=== PATIENT | male | born 1955 | race Caucasian/White ===

== ENCOUNTER 2017-06-01 21:33 | Emergency (ER) | payer OTHER ==
[~2017-06-01] VITALS: Ht 172.7 cm; Wt 83.2 kg
[2017-06-01 22:28] LABS: HEMATOCRIT 44.1 % (38.0-50.0); MCHC 33.3 G/DL (30.0-36.0); MEAN PLAT.VOLUME 11.3 uM^3 (9.0-12.4); PLATELET COUNT 188 K/uL (156-360); RBC DIS.WIDTH-CV 13.1 % (11.8-14.6); RBC DIS.WIDTH-SD 41.6 % (39-53); RED BLOOD COUNT 5.07 M/uL (4.00-5.50); WHITE BLOOD COUNT 20.3 K/uL (4.1-10.2)
[2017-06-01 22:48] LABS: CHLORIDE 106 mEq/L (99-109); POTASSIUM 4.2 mEq/L (3.7-5.4); SODIUM 139 mEq/L (136-147)
[2017-06-01 22:50] LABS: GLUCOSE 137 mg/dL (70-99)
[2017-06-01 22:51] LABS: ANION GAP 11 MEQ/L (2-14)
[2017-06-01 22:54] LABS: UREA NITROGEN (BUN) 15 mg/dL (9-23)
[2017-06-01 22:56] LABS: GFR ESTIMATE (CALCULATED) > 59 mL/min/
[2017-06-02 00:18] LABS: ADD MIUA? NO; BILIRUBIN NEGATIVE; BLOOD NEGATIVE; COLOR YELLOW ((YELLOW)); GLUCOSE (STRIP) NEGATIVE; KETONES 5; LEUKOCYTES NEGATIVE; NITRITE NEGATIVE; PROTEIN (STRIP) NEGATIVE; UCUL ADDED? NO; UROBILINOGEN 0.2 MG/DL (0.2-1.0)
[2017-06-02 00:44] VITALS: BP 145/78
[2017-06-02] MEDS ORDERED: TRADJENTA5 MG PO (00:48)
== END 2017-06-02 00:48 | disposition home or self-care (01) ==
LOC: EME 21:33
DX: K52.9 Noninfective gastroenteritis and colitis, unspecified (principal); E78.5 Hyperlipidemia, unspecified; I10 Essential (primary) hypertension
CPT/HCPCS: 74176; 80048; 81003; 83605; 85027; 87040; 99281; 99284; J2405; J7030

== ENCOUNTER 2017-06-06 03:23 | Emergency (ER) | payer OTHER ==
[~2017-06-06] VITALS: Ht 172.7 cm; Wt 84.6 kg
[~2017-06-06 03:23] MED LIST: TRADJENTA5 MG PO
[2017-06-06 04:03] LABS: EOSINOPHIL (%) 0.9 % (0-5); EOSINOPHIL COUNT 0.2 K/uL (0-0.3); HEMATOCRIT 46.2 % (38.0-50.0); IMMATURE GRANULOCYTE (%) 0.6 % (0.0-0.7); IMMATURE GRANULOCYTE COUNT 0.1 K/uL; INSTRUMENT ABS NEUTROPHIL CT 14.9 K/uL; LYMPHOCYTE COUNT 1.5 K/uL (1.0-2.8); MCH 28.8 PG (29.0-34.0); MCHC 32.9 G/DL (30.0-36.0); MCV 87.5 FL (86-99); MONOCYTE COUNT 0.9 K/uL (0-0.8); NEUTROPHIL COUNT 14.9 K/uL (1.8-6.4); PLATELET COUNT 205 K/uL (156-360); RBC DIS.WIDTH-CV 13.2 % (11.8-14.6); RED BLOOD COUNT 5.28 M/uL (4.00-5.50); WHITE BLOOD COUNT 17.5 K/uL (4.1-10.2)
[2017-06-06 04:18] LABS: CHLORIDE 103 mEq/L (99-109); POTASSIUM 4.1 mEq/L (3.7-5.4); SODIUM 138 mEq/L (136-147)
[2017-06-06 04:20] LABS: GLUCOSE 240 mg/dL (70-99)
[2017-06-06 04:21] LABS: ANION GAP 11 MEQ/L (2-14)
[2017-06-06 04:22] LABS: TOTAL BILIRUBIN 0.7 mg/dL (0.0-1.0)
[2017-06-06 04:23] LABS: ALKALINE PHOSPHATASE 89 IU/L (3-129)
[2017-06-06 04:24] LABS: GFR ESTIMATE (CALCULATED) > 59 mL/min/
[2017-06-06 04:25] LABS: UREA NITROGEN (BUN) 14 mg/dL (9-23)
[2017-06-06 04:27] LABS: LIPASE 49 U/L (1.0-51.0)
[2017-06-06 04:56] LABS: C DIFF TOXIN NEGATIVE (NEGATIVE)
[2017-06-06 04:59] LABS: PROBE CHECK PASS; SPECIMEN PROCESSING CONTROL PASS
[2017-06-06] MEDS ORDERED: BENTYL20 MG PO (07:11)
[2017-06-06] MEDS ORDERED: ZOFRAN4 MG PO (07:11)
[2017-06-06] MEDS ORDERED: PERCOCET 5/31 TABLET PO (09:53)
[2017-06-06] MEDS ORDERED: ZOFRAN ODT4 MG PO (09:53)
[2017-06-06 10:00] VITALS: BP 120/86
== END 2017-06-06 10:00 | disposition home or self-care (01) ==
LOC: EME → EDBD 03:23 → EME 10:00
PROVIDERS: Emergency Medicine
DX: A08.4 Viral intestinal infection, unspecified (principal); E86.0 Dehydration; E11.65 Type 2 diabetes mellitus with hyperglycemia; I10 Essential (primary) hypertension; E78.5 Hyperlipidemia, unspecified
CPT/HCPCS: 80053; 83690; 85025; 87493; 99281; 99284; J2405; J2765; J3010; J7030

== ENCOUNTER 2017-06-11 23:02 | Observation (INO) | payer OTHER ==
[~2017-06-11] VITALS: Ht 172.7 cm; Wt 84.8 kg
[~2017-06-11 23:02] MED LIST changes: +BENTYL20 MG PO; +PERCOCET 5/31 TABLET PO; +ZOFRAN ODT4 MG PO; +ZOFRAN4 MG PO
[2017-06-11 23:42] LABS: HEMATOCRIT 44.6 % (38.0-50.0); MCH 29.2 PG (29.0-34.0); MCHC 33.2 G/DL (30.0-36.0); PLATELET COUNT 222 K/uL (156-360); RBC DIS.WIDTH-CV 13.2 % (11.8-14.6); RBC DIS.WIDTH-SD 42.7 % (39-53); RED BLOOD COUNT 5.07 M/uL (4.00-5.50)
[2017-06-11 23:54] LABS: ADD MIUA? YES; BILIRUBIN NEGATIVE; BLOOD NEGATIVE; COLOR YELLOW ((YELLOW)); GLUCOSE (STRIP) NEGATIVE; KETONES NEGATIVE; LEUKOCYTES NEGATIVE; NITRITE NEGATIVE; PROTEIN (STRIP) 30; SPECIFIC GRAVITY 1.021 (1.000-1.030); UROBILINOGEN 0.2 MG/DL (0.2-1.0)
[2017-06-11 23:59] LABS: CHLORIDE 105 mEq/L (99-109); POTASSIUM 4.2 mEq/L (3.7-5.4); SODIUM 139 mEq/L (136-147)
[2017-06-12 00:01] LABS: BACTERIA RARE /HPF; EPITHELIAL CELLS RARE /HPF; MUCUS 1+ /LPF; RED BLOOD CELLS 0-5 /HPF (0-5); UCUL ADDED? NO; WHITE BLOOD CELLS 0-5 /HPF (0-5)
[2017-06-12 00:01] LABS: GLUCOSE 134 mg/dL (70-99)
[2017-06-12 00:02] LABS: ANION GAP 8 MEQ/L (2-14)
[2017-06-12 00:03] LABS: TOTAL BILIRUBIN 0.6 mg/dL (0.0-1.0)
[2017-06-12 00:04] LABS: ALKALINE PHOSPHATASE 81 IU/L (3-129)
[2017-06-12 00:05] LABS: GFR ESTIMATE (CALCULATED) > 59 mL/min/
[2017-06-12 00:06] LABS: UREA NITROGEN (BUN) 10 mg/dL (9-23)
[2017-06-12 00:08] LABS: LIPASE 24 U/L (1.0-51.0)
[2017-06-12] MEDS ORDERED: BENTYL20 MG PO (01:21)
[2017-06-12] MEDS ORDERED: ZETIA10 MG PO (01:22)
[2017-06-12] MEDS ORDERED: TRESIBA FL200 UNIT/1 SC (01:22)
[2017-06-12] MEDS ORDERED: LIPITOR20 MG PO (01:22)
[2017-06-12] MEDS ORDERED: VICTOZA0.6 MG/0.1 SC (01:22)
[2017-06-12] MEDS ORDERED: SYNTHROID100 MCG PO (01:23)
[2017-06-12] MEDS ORDERED: VASOTEC20 MG PO (01:23)
[2017-06-12] MEDS ORDERED: ASPIR 8181 M1 PO (01:23)
[2017-06-12 01:41] LABS: TROP-I INTERPRETATION NEGATIVE; TROPONIN-I < 0.01 ng/mL (0.0-0.30)
[2017-06-12 04:09] LABS: EOSINOPHIL (%) 2.2 % (0-5); EOSINOPHIL COUNT 0.3 K/uL (0-0.3); HEMATOCRIT 42.6 % (38.0-50.0); IMMATURE GRANULOCYTE (%) 0.3 % (0.0-0.7); INSTRUMENT ABS NEUTROPHIL CT 11.5 K/uL; LYMPHOCYTE COUNT 1.6 K/uL (1.0-2.8); MCH 29.2 PG (29.0-34.0); MCHC 33.6 G/DL (30.0-36.0); MCV 87.1 FL (86-99); MONOCYTE (%) 6.7 % (3-12); NEUTROPHIL (%) 79.6 % (45-76); NEUTROPHIL COUNT 11.5 K/uL (1.8-6.4); PLATELET COUNT 199 K/uL (156-360); RBC DIS.WIDTH-CV 13.2 % (11.8-14.6); RBC DIS.WIDTH-SD 41.7 % (39-53); RED BLOOD COUNT 4.89 M/uL (4.00-5.50); WHITE BLOOD COUNT 14.4 K/uL (4.1-10.2)
[2017-06-12 04:52] LABS: ABS NEUTROPHIL COUNT 25.3; ATYPICAL LYMPHOCYTE 0.9 %; BAND NEUTROPHILS 4.5 % (0-8.0); EOSINOPHIL ABS CT 0; LYMPHOCYTES 6.3 % (15.0-45.0); SEG.NEUTROPHILS 82.9 % (46.0-76.0)
[2017-06-12 09:03] VITALS: BP 131/75
[2017-06-12 10:04] LABS: POINT-OF-CARE METER ID UU14162508
[2017-06-12 16:23] VITALS: BP 105/59
[2017-06-12 20:27] VITALS: BP 117/63
[2017-06-13 00:31] VITALS: BP 108/55
[2017-06-13 04:54] VITALS: BP 114/69
[2017-06-13 07:06] LABS: HEMATOCRIT 38.3 % (38.0-50.0); MCH 29.9 PG (29.0-34.0); MCHC 33.4 G/DL (30.0-36.0); MCV 89.5 FL (86-99); PLATELET COUNT 161 K/uL (156-360); RBC DIS.WIDTH-CV 13.4 % (11.8-14.6); RBC DIS.WIDTH-SD 43.8 % (39-53); RED BLOOD COUNT 4.28 M/uL (4.00-5.50); WHITE BLOOD COUNT 8.7 K/uL (4.1-10.2)
[2017-06-13] MEDS ORDERED: PROTONIX40 MG PO (07:18)
[2017-06-13] MEDS ORDERED: ZOFRAN4 MG PO (07:19)
[2017-06-13 07:28] LABS: ANION GAP 3 MEQ/L (2-14); CHLORIDE 110 MEQ/L (99-109); GFR ESTIMATE (CALCULATED) > 59 mL/min/; POTASSIUM 4.2 MEQ/L (3.7-5.4); SAMPLE HEMOLYSIS CHECK 0; SAMPLE ICTERIC CHECK 0; SAMPLE LIPEMIA CHECK 0; SODIUM 142 MEQ/L (136-147); UREA NITROGEN (BUN) 9 mg/dL (9-23)
[2017-06-13 07:37] LABS: GLUCOSE 91 mg/dL (70-99)
[2017-06-13 08:25] VITALS: BP 126/71
== END 2017-06-13 11:22 | disposition home or self-care (01) ==
LOC: EME → EDBD 23:02 → EDOF 06-12 03:25 → 2EASTP 06-12 03:25 → ENRESERV 06-12 03:27 → 2EASTP 06-12 08:47 → ENRESERV 06-12 08:56 → 2EASTP 06-12 08:57
PROVIDERS: Emergency Medicine; Hospitalist; Internal Medicine
DX: K52.9 Noninfective gastroenteritis and colitis, unspecified (principal); R65.10 Systemic inflammatory response syndrome (SIRS) of non-infectious origin without acute organ dysfunction; I10 Essential (primary) hypertension; E11.9 Type 2 diabetes mellitus without complications; E78.5 Hyperlipidemia, unspecified; E03.9 Hypothyroidism, unspecified; N40.0 Benign prostatic hyperplasia without lower urinary tract symptoms; K76.0 Fatty (change of) liver, not elsewhere classified; Z79.82 Long term (current) use of aspirin; Z79.4 Long term (current) use of insulin
CPT/HCPCS: 71010; 74177; 76705; 80048; 80053; 81003; 82948; 83605; 83690; 84484; 85007; 85025; 85027; 85651; 87040; 90686; 93005; 99281; 99285; C9113; G0378; J1650; J2270; J2405; J2543; J7030; J7050

== ENCOUNTER → 2017-07-30 | Outpatient (CLI) | payer OTHER ==
[~2017-07-30] VITALS: Ht 172.7 cm; Wt 84.9 kg
[~2017-07-30] MED LIST changes: +ASPIR 8181 M1 PO; +COZAAR100 MG PO; +LIPITOR20 MG PO; +PROTONIX40 MG PO; +SYNTHROID100 MCG PO; +TRESIBA FL200 UNIT/1 SC; +VASOTEC20 MG PO; +VICTOZA0.6 MG/0.1 SC; +ZETIA10 MG PO
[2017-07-30 10:34] LABS: POINT-OF-CARE METER ID UU14107333
[2017-07-30 11:08] LABS: POINT-OF-CARE METER ID UU13113819
== END | disposition home or self-care (01) ==
LOC: AMB 09:54
PROVIDERS: Internal Medicine Gastroenterology
PROC: 0DJD8ZZ Inspection of Lower Intestinal Tract, Via Natural or Artificial Opening Endoscopic (ICD-10-PCS; principal; 2017-07-30)
DX: Z12.11 Encounter for screening for malignant neoplasm of colon (principal); K63.5 Polyp of colon; K64.8 Other hemorrhoids; K64.4 Residual hemorrhoidal skin tags; R19.7 Diarrhea, unspecified; I10 Essential (primary) hypertension; E11.9 Type 2 diabetes mellitus without complications; E78.00 Pure hypercholesterolemia, unspecified; Z82.49 Family history of ischemic heart disease and other diseases of the circulatory system; Z83.3 Family history of diabetes mellitus; K21.9 Gastro-esophageal reflux disease without esophagitis; Z79.84 Long term (current) use of oral hypoglycemic drugs
CPT/HCPCS: 82948; 88305